=== PATIENT | female | born 1980 | race Caucasian/White ===

== ENCOUNTER → 2019-02-16 17:58 | Outpatient (CLI) | payer OTHER | END | disposition home or self-care (01) | LOC: LAB 17:58 | DX: Z34.03 Encounter for supervision of normal first pregnancy, third trimester (principal) ==

== ENCOUNTER 2019-03-01 08:45 | Inpatient (IN) | payer OTHER ==
[~2019-03-01] VITALS: Ht 175.3 cm; Wt 115.2 kg
[2019-03-08] MEDS ORDERED: VALTREX1000 MG PO (10:52)
[2019-03-08] MEDS ORDERED: PRENATAL TABLE1 EAC1 PO (10:52)
== END 2019-03-10 15:54 | disposition home or self-care (01) | DRG 768 ==
LOC: O/R 08:45 → LDR 03-08 09:49 → OB/GYN 03-08 18:43
PROVIDERS: ADMIT Obstetrics & Gynecology
PROC: 10E0XZZ Delivery of Products of Conception, External Approach (ICD-10-PCS; principal; 2019-03-08)
PROC: 0DQR0ZZ Repair Anal Sphincter, Open Approach (ICD-10-PCS; 2019-03-08)
PROC: 3E033VJ Introduction of Other Hormone into Peripheral Vein, Percutaneous Approach (ICD-10-PCS; 2019-03-08)
PROC: 10907ZC Drainage of Amniotic Fluid, Therapeutic from Products of Conception, Via Natural or Artificial Opening (ICD-10-PCS; 2019-03-08)
PROC: 4A1HXCZ Monitoring of Products of Conception, Cardiac Rate, External Approach (ICD-10-PCS; 2019-03-08)
DX: O70.21 Third degree perineal laceration during delivery, IIIa (principal); Z37.0 Single live birth; Z3A.38 38 weeks gestation of pregnancy

== ENCOUNTER 2024-09-20 04:53 | Day surgery (SDC) | payer OTHER ==
[2024-09-01 08:05] LABS: URINE APPEARANCE Clear; URINE BILIRRUBIN Negative (NEGATIVE); URINE BLOOD Large; URINE COLOR Yellow; URINE GLUCOSE Negative (NEGATIVE); URINE KETONE Negative (NEGATIVE); URINE LEUKOCYTE Negative; URINE NITRATE Negative; URINE PROTEIN Negative (NEGATIVE); URINE UROBILINOGEN 0.2 E.U./dl
[2024-09-01 08:08] LABS: HEMOGLOBIN 10.8 g/dL (12.0-15.00); MEAN CORPUSCULAR HGB CONC 31.6 g/dl (32.0-36.0); PLATELET COUNT 277 K/uL (150-450); RED BLOOD COUNT 5.13 M/uL (4.00-6.00); RED CELL DISTRIBUTION WIDTH 18.8 % (11.5-14.5)
[2024-09-01 08:09] LABS: URINE BACTERIA 51.3 uL (0.0-1933); URINE EPITHELIAL CELLS 3.7 uL (0.0-38.8); URINE RBC 5.3 uL (0.0-20.8)
[2024-09-01 08:22] LABS: URINE CAST 0.14 uL (0.0-1.40)
[2024-09-01 08:48] LABS: ALBUMIN 3.7 gm/dL (3.4-5.0); BILIRUBIN TOTAL 0.31 mg/dL (0.3-1.2); CALCIUM 9.2 mg/dL (8.5-10.1); CREATININE SERUM 0.74 mg/dL (0.55-1.02); GFR 84.87; GLOBULINA 3.9 G/DL (2.4-3.5); POTASSIUM 4.41 mEq/L (3.5-5.1); TOTAL PROTEIN 7.6 gm/dL (6.4-8.2)
[2024-09-01 08:50] LABS: MEAN CELL VOLUME 66.4 fL (80.00-100.00)
[2024-09-01 10:08] LABS: INR 0.98; PARTIAL THROMBOPLASTIN TIME 25.3 SECONDS (22.0-34.0); PROTHROMBIN TIME 10.7 SECONDS (9.0-11.5)
[~2024-09-20 04:53] MED LIST: PRENATAL TABLE1 EAC1 PO; VALTREX1000 MG PO
[2024-09-20] MEDS ORDERED: BUPIVACAINE HCL/MPF 0.5% 30ML VIAL ONE (06:59)
[2024-09-20] MEDS ORDERED: LIDOCAINE HCL 1%/EPINEPHRINE 20ML VIAL IJ ONE (06:59)
[2024-09-20] MEDS ORDERED: CEFAZOLIN SODIUM 1,000 MG VIAL ONE ×2 (06:59→09:40)
[2024-09-20] MEDS ORDERED: CHLORHEXIDINE GLUCONATE 120 ML BOTTLE TOP ONE (07:21)
[2024-09-20] MEDS ORDERED: ONDANSETRON HCL 2 MG/ML VIAL ONE (09:17)
[2024-09-20] MEDS ORDERED: ONDANSETRON HCL 2 MG/ML VIAL IV ONE (09:20)
[2024-09-20] MEDS ORDERED: MORPHINE SULFATE 4 MG/ML VIAL IV ONE ×2 (09:25→09:55)
[2024-09-20] MEDS ORDERED: FAMOTIDINE/PF 20 MG/10 ML SYRINGE IV SCH (09:30)
[2024-09-20] MEDS ORDERED: CEFAZOLIN SODIUM 1,000 MG VIAL IV SCH (09:30)
[2024-09-20] MEDS ORDERED: FAMOTIDINE/PF 20 MG/2 ML VIAL ONE (09:40)
== END 2024-09-20 12:30 | disposition home or self-care (01) ==
LOC: CIR.AMB 04:53
PROVIDERS: ATTEND Specialist
DX: K80.10 Calculus of gallbladder with chronic cholecystitis without obstruction (principal); Z91.041 Radiographic dye allergy status; Z91.013 Allergy to seafood